=== PATIENT | female | born 1945 ===

== ENCOUNTER 2017-05-29 22:51 | Inpatient (IN) | payer MEDICARE, MEDICAID ==
[2017-05-29] MEDS ORDERED: cefTRIAXone IV 1 gm in Dextros 50 ML IV ONE (23:45)
[2017-05-29] MEDS ORDERED: Albuterol-Ipratrop 3 mg / 0.5 (3 ml) UD INH STA (23:45)
[2017-05-29 23:59] LABS: BASO % 0.5 % (0.0-2.0); EOS % 0.1 % (0.0-4.0); HEMOGLOBIN 12.4 g/dL (11.0-16.0); LYMPH # 1.5 K/uL (1.0-4.3); LYMPH % 38.6 % (20.0-40.0); MEAN CELL VOLUME 82.6 fL (81.0-99.0); MEAN CORPUSCULAR HEMOGLOBIN 27.6 pg (27.0-31.0); MEAN CORPUSCULAR HGB CONC 33.4 g/dL (33.0-37.0); MEAN PLATELET VOLUME 10.1 fL (7.2-11.7); MONO # 0.4 K/uL (0.0-0.8); MONO % 11.6 % (0.0-10.0); NEUT # 1.9 K/uL (1.8-7.0); NEUT % 49.2 % (50.0-75.0); NRBC % 0.1 % (0.0-2.0); RBC 4.49 Mil/uL (3.80-5.20); RED CELL DISTRIBUTION WIDTH 13.5 % (11.5-14.5); WHITE BLOOD COUNT 3.9 K/uL (4.8-10.8)
[2017-05-30 00:13] LABS: ALB/GLOB RATIO 1.1 (1.0-2.1); ALBUMIN 4.1 g/dL (3.5-5.0); CALCIUM 8.5 mg/dl (8.6-10.4); GFR AFRICAN-AMERICAN 59; GFR NON-AFRICAN AMERICAN 49
[2017-05-30 00:24] LABS: B-TYPE NATRIURETIC PEPTIDE 66.1 pg/mL (0-900)
[2017-05-30 00:29] LABS: ALT/SGPT 39 U/L (9-52); AST/SGOT 55 U/L (14-36); BLOOD UREA NITROGEN 20 mg/dL (7-17)
[2017-05-30] MEDS ORDERED: Albuterol-Ipratrop 3 mg / 0.5 (3 ml) UD ONE (00:40)
--- NOTE | 2017-05-30 00:40 | C.PDOC ---
History Of Present Illness <Silver Castillo - Last Filed: 05/30/17 00:54> <Meño Fernández - Last Filed: 05/30/17 01:21> 72 years old female presents to ED with complaints of fever, diarrhea, cough with yellow scant sputum for the last 3 days. Patient states she has taken zpack , Tylenol, and cough syrups with no relief. Patient is unable to follow up with PMD Dr. Fletcher because he is on vacation. Patient completed regiment of azithromycin 500mg daily for 3 days; last dose was yesterday. (Meño Fernández) <Silver Castillo - Last Filed: 05/30/17 00:54> History Per: Patient History/Exam Limitations: no limitations Onset/Duration Of Symptoms: Days (3) Current Symptoms Are (Timing): Still Present Severity: Moderate Pain Scale Rating Of: 4 Recent travel outside of the [place]: No <Meño Fernández - Last Filed: 05/30/17 01:21> Time Seen by Provider: 05/29/17 23:32 Chief Complaint (Nursing): Cough, Cold, Congestion Past Medical History Reviewed: Historical Data, Nursing Documentation, Vital Signs - Medical History PMH: HTN, Hyperlipidemia, Hyperthyroidism Surgical History: Cholecystectomy Family History: States: No Known Family Hx - Social History Hx Alcohol Use: No Hx Substance Use: No - Immunization History Hx Tetanus Toxoid Vaccination: No Hx Influenza Vaccination: No Hx Pneumococcal Vaccination: No <Meño Fernández - Last Filed: 05/30/17 01:21> Vital Signs: Last Vital Signs Temp 98.7 F 05/29/17 23:06 Pulse 62 05/30/17 00:22 Resp 18 05/30/17 00:22 BP 120/63 05/30/17 00:22 Pulse Ox 95 05/30/17 00:45 Review Of Systems Constitutional: Positive for: Fever Respiratory: Positive for: Cough, Sputum (Scanty yellow) Gastrointestinal: Positive for: Diarrhea. Negative for: Nausea, Vomiting Neurological: Negative for: Weakness, Numbness Psych: Negative for: Depression, Suicidal ideation <Meño Fernández - Last Filed: 05/30/17 01:21> Physical Exam - Physical Exam Appears: Non-toxic, Other (Awake and alert ) Skin: Normal Color, Warm, Dry Head: Atraumatic, Normacephalic Eye(s): bilateral: Normal Inspection Ear(s): Bilateral: Normal Oral Mucosa: Moist Chest: Symmetrical, No Tenderness Cardiovascular: Rhythm Regular Respiratory: No Rales, Rhonchi (Scattered), No Wheezing, Other (Increased breath sounds in bilateral bases) Gastrointestinal/Abdominal: Soft, No Tenderness Neurological/Psych: Oriented x3, Normal Speech, Normal Cognition <Meño Fernández - Last Filed: 05/30/17 01:21> ED Course And Treatment - Laboratory Results Result Diagrams: 05/29/17 23:56 05/29/17 23:56 <Silver Castillo - Last Filed: 05/30/17 00:54> - Laboratory Results Result Diagrams: 05/29/17 23:56 05/29/17 23:56 O2 Sat by Pulse Oximetry: 95 (Room air) Pulse Ox Interpretation: Normal <Meño Fernández Last Filed: 05/30/17 01:21> Medical Decision Making <Silver Castillo - Filed: 05/30/17 00:54> <Meño Fernández - Last Filed: 05/30/17 01:21> Medical Decision Making: Administered Duoneb nebulizer, SOLU- Medrol, and Rocephine. Ordered EKG, blood work, CXR, Urinalysis, Flu swab and blood cultures. (Meño Fernández) Disposition Discussed With : Tino Stein Comment: accepted the pt on his service and took over the care at 12:55 AM Doctor Will See Patient In The: Hospital Counseled Patient/Family Regarding: Studies Performed, Diagnosis - Disposition Disposition Time: 00:55 - POA Present On Arrival: None <Silver Castillo Filed: 05/30/17 00:54> <Meño Fernández - Last Filed: 05/30/17 01:21> - Disposition Disposition: HOSPITALIZED Condition: FAIR - Clinical Impression Clinical Impression: Pneumonia <Silver Castillo Filed: 05/30/17 00:54> - Scribe Statement The provider has reviewed the documentation as recorded by the Scribe <Meño Fernández - Last Filed: 05/30/17 01:21> - Scribe Statement Deep Celaya All medical record entries made by the Scribe were at my direction and personally dictated by me. I have reviewed the chart and agree that the record accurately reflects my personal performance of the history, physical exam, medical decision making, and the department course for this patient. I have also personally directed, reviewed, and agree with the discharge instructions and disposition. (Meño Fernández) Decision To Admit - Pt Status Changed To: Hospital Disposition Of: Inpatient - Admit Certification Admit to Inpatient:: After my assessment, the patient will require hospitalization for at least two midnights. This is because of the severity of symptoms shown, intensity of services needed, and/or the medical risk in this patient being treated as an outpatient. - InPatient: Physician Admission Certification: I certify that this patient requires 2 or more midnights of care for the following reason:: After my assessment, the patient will require hospitalization for at least two midnights. This is because of the severity of symptoms shown, intensity of services needed, and/or the medical risk in this patient being treated as an outpatient. - . Bed Request Type: Regular Admitting Physician: Tino Stein <Silver Castillo - Last Filed: 05/30/17 00:54> <Meño Fernández - Last Filed: 05/30/17 01:21> - . Patient Diagnosis: Pneumonia
[2017-05-30] MEDS ORDERED: Azithromycin 500 MG in Sodium Chloride 0.9% 250 ML IVPB STA (01:08)
[2017-05-30 01:18] LABS: SQUAMOUS EPITHIAL < 1 /hpf (0-5); URINE BACTERIA RARE (<OCC); URINE BILIRUBIN NEGATIVE (NEGATIVE); URINE BLOOD NEGATIVE (NEGATIVE); URINE CLARITY Clear (Clear); URINE COLOR Straw (YELLOW); URINE GLUCOSE (UA) NORMAL (Normal); URINE LEUKOCYTE ESTERASE NEG Leu/uL (Negative); URINE NITRATE NEGATIVE (NEGATIVE); URINE PROTEIN NEGATIVE (NEGATIVE); URINE UROBILINOGEN NORMAL mg/dL (0.2-1.0)
--- NOTE | 2017-05-30 18:16 | RAD ---
PROCEDURE: CHEST RADIOGRAPH, 1 VIEW HISTORY: SOB COMPARISON: None available. FINDINGS: LUNGS: No evidence of significant infiltrate or consolidation in the lungs PLEURA: No pneumothorax or pleural fluid seen. CARDIOVASCULAR: Normal. OSSEOUS STRUCTURES: No significant abnormalities. VISUALIZED UPPER ABDOMEN: Normal. OTHER FINDINGS: None. IMPRESSION: Baseline portable chest x-ray. No evidence of acute pulmonary disease.
[2017-05-31] MEDS ORDERED: Azithromycin 500mg/250ML NS 500 MG/250 ML BAG IVPB SCH ×2 (01:25)
[2017-05-31] MEDS: Azithromycin 500 MG in Sodium Chloride 0.9% 250 ML IVPB SCH (01:35)
[2017-05-31] MEDS: Levothyroxine 50 MCG TAB PO SCH (05:55)
[2017-05-31] MEDS ORDERED: cefTRIAXone IV 1 gm in Dextros 50 ML IVPB SCH (10:00)
--- NOTE | 2017-05-31 16:24 | CP.PCM.HP ---
History of Present Illness - History of Present Illness History of Present Illness: CC: cough HPI: 72 female with h/o HTN hypothyroidism osteoporosis arthritis came to ED with sob , cough and fever for 5days durations. No recent travel no sick exposure. c/o abd pain and diarrhea noted loose bm, watery and frequently chills noted cough with mucos and white in color body pain and mild sore throat noted Present on Admission - Present on Admission Any Indicators Present on Admission: No History of DVT/PE: No History of Uncontrolled Diabetes: No Urinary Catheter: No Decubitus Ulcer Present: No Review of Systems - Review of Systems All systems: reviewed and no additional remarkable complaints except Review of Systems: cough body pain chest congesion diarrhea leg swelling negative no travel or sick exposure Past Patient History - Infectious Disease Hx of Infectious Diseases: None - Tetanus Immunizations Tetanus Immunization: Unknown - Past Medical History & Family History Past Medical History?: Yes Past Family History: Reviewed and not pertinent - Past Social History Smoking Status: Never Smoked - CARDIAC Hx Hypertension: Yes - PULMONARY Hx Respiratory Disorders: No - NEUROLOGICAL Hx Neurological Disorder: No - HEENT Hx HEENT Problems: No - RENAL Hx Chronic Kidney Disease: No - ENDOCRINE/METABOLIC Hx Hyperthyroidism: Yes - HEMATOLOGICAL/ONCOLOGICAL Hx Blood Disorders: No - INTEGUMENTARY Hx Dermatological Problems: No - MUSCULOSKELETAL/RHEUMATOLOGICAL Hx Musculoskeletal Disorders: Yes Hx Arthritis: Yes Hx Falls: No - GASTROINTESTINAL Hx Gastrointestinal Disorders: Yes Other/Comment: Lactose Intolerant - GENITOURINARY/GYNECOLOGICAL Hx Genitourinary Disorders: No - PSYCHIATRIC Hx Substance Use: No - SURGICAL HISTORY Hx Cholecystectomy: Yes - ANESTHESIA Hx Anesthesia: Yes Hx Anesthesia Reactions: No Hx Malignant Hyperthermia: No Has any member of the family had a problem w/ anesthesia?: No Meds Allergies/Adverse Reactions: Allergies Allergy/AdvReac Type Severity Reaction Status Date / Time No Known Allergies Allergy Verified 05/29/17 23:11 Physical Exam - Constitutional Appears: Well - Head Exam Head Exam: ATRAUMATIC Additional comments: chest good air entry wheezing noted no fever regular hs abd soft Results - Vital Signs Recent Vital Signs: Last Vital Signs Temp 98 F 05/31/17 08:00 Pulse 63 05/31/17 08:00 Resp 20 05/31/17 08:00 BP 125/80 05/31/17 08:00 Pulse Ox 98 05/31/17 08:00 - Labs Result Diagrams: 05/29/17 23:56 05/29/17 23:56 - Impressions Impression: cxr left lower lung infiltrate Assessment & Plan (1) Hypothyroid Status: Acute (2) Hypertension Status: Acute (3) Pneumonia Assessment and Plan: CAP on antibiotics will get CT chest in am Status: Acute
--- NOTE | 2017-05-31 16:39 | CP.PCM.PN ---
Subjective - Date & Time of Evaluation Date of Evaluation: 05/31/17 Time of Evaluation: 16:37 - Subjective Subjective: pt is feeling better cough noted vitals stable eating ok white mucous noted Objective - Vital Signs/Intake and Output Vital Signs (last 24 hours): Temp Pulse Resp BP Pulse Ox 97.8 F 63 20 147/81 97 05/31/17 16:00 05/31/17 16:00 05/31/17 16:00 05/31/17 16:00 05/31/17 16:00 Intake and Output: 05/31/17 05/31/17 06:59 18:59 Intake Total 580 Balance 580 - Medications Medications: Current Medications Aspirin (Ecotrin) 81 mg PO DAILY [facility] Azithromycin 500 mg/ Sodium (Chloride) 250 mls @ 167 mls/hr IVPB Q24H [facility] Last Admin: 05/31/17 01:35 Dose: 167 mls/hr Ceftriaxone Sodium 1 gm/ (Sodium Chloride) 100 mls @ 100 mls/hr IVPB DAILY [facility] Last Admin: 05/31/17 10:13 Dose: 100 mls/hr Levothyroxine Sodium (Synthroid) 50 mcg PO DAILY@0630 [facility] Last Admin: 05/31/17 05:55 Dose: 50 mcg Losartan Potassium (Cozaar) 50 mg PO DAILY [facility] Last Admin: 05/31/17 10:12 Dose: 50 mg Methylprednisolone (Solu-Medrol) 40 mg IVP Q12 [facility] Stop: 06/03/17 22:01 Pneumococcal Polyvalent Vaccine (Pneumovax 23 Vaccine) 0.5 ml IM .ONCE ONE Stop: 06/01/17 10:01 Rosuvastatin Calcium (Crestor) 5 mg PO HS [facility] Last Admin: 05/30/17 21:11 Dose: 5 mg - Labs Labs: 05/29/17 23:56 05/29/17 23:56 - Head Exam Head Exam: ATRAUMATIC - Respiratory Exam Respiratory Exam: Prolonged Expiratory Phase - GI/Abdominal Exam GI & Abdominal Exam: Normal Bowel Sounds - Rectal Exam Rectal Exam: Deferred, NORMAL INSPECTION Assessment and Plan (1) Hypothyroid Status: Acute (2) Hypertension Status: Acute (3) Pneumonia Assessment & Plan: will get ct chest add solu-medrol on antibiotic Status: Acute
--- NOTE | 2017-05-31 17:32 | CT ---
PROCEDURE: CT Chest without contrast HISTORY: pneumonia COMPARISON: None. TECHNIQUE: Contiguous axial images were obtained through the chest without intravenous contrast enhancement. Sagittal and coronal reconstructions were performed. Radiation dose (DLP): 209.79 mGy-cm. This CT exam was performed using one or more of the following dose reduction techniques: Automated exposure control, adjustment of the mA and/or kV according to patient size, and/or use of iterative reconstruction technique. FINDINGS: LUNGS: No evidence of focal infiltrate or consolidation in the lungs to suggest pneumonia. Mild bibasilar atelectasis noted. MEDIASTINUM: Unremarkable thoracic aorta. No aneurysm. Normal sized heart. Main pulmonary artery unremarkable. No vascular congestion. No lymphadenopathy. PLEURA: No pleural fluid. No pneumothorax. BONES: No fracture. No destructive lesion. UPPER ABDOMEN: Grossly unremarkable. OTHER FINDINGS: None. IMPRESSION: No evidence of pneumonia.
[2017-05-31] MEDS: MethylPREDNISolone 40 mg Vial IVP SCH (22:04)
[2017-06-01] MEDS: Azithromycin 500 MG in Sodium Chloride 0.9% 250 ML IVPB SCH (00:44)
[2017-06-01 01:24] VITALS: PULSE 60
[2017-06-01] MEDS: Levothyroxine 50 MCG TAB PO SCH (05:46)
[2017-06-01] MEDS ORDERED: Pneumococcal 23-Valent Vaccine IM ONE (10:00)
[2017-06-01] MEDS ORDERED: Enoxaparin 40 mg Syringe SC SCH (10:00)
[2017-06-01] MEDS ORDERED: Influenza Vaccine 60 mcg/0.5 mL SYR (4YR UP) IM ONE (10:00)
[2017-06-01] MEDS: MethylPREDNISolone 40 mg Vial IVP SCH (10:49)
[2017-06-01 16:46] VITALS: BP 132/77; RESP 20; TEMP 98.5; O2SAT 94
--- NOTE | 2017-06-01 16:59 | CP.PCM.PN ---
Subjective - Date & Time of Evaluation Date of Evaluation: 06/01/17 Time of Evaluation: 11:30 - Subjective Subjective: Patient seen today, states feels better , denies any sob, chest pain, fever, chills ., N/V/ c/o productive cough with white sputum a febrile o2 94-95% on room air Objective - Vital Signs/Intake and Output Vital Signs (last 24 hours): Temp Pulse Resp BP Pulse Ox 98.5 F 60 20 132/77 94 L 06/01/17 15:00 06/01/17 15:00 06/01/17 15:00 06/01/17 15:00 06/01/17 15:00 Intake and Output: 06/01/17 06/01/17 06:59 18:59 Intake Total 240 Balance 240 - Medications Medications: Current Medications Aspirin (Ecotrin) 81 mg PO DAILY [facility] Last Admin: 06/01/17 10:49 Dose: 81 mg Enoxaparin Sodium (Lovenox) 40 mg SC DAILY [facility] Last Admin: 06/01/17 10:51 Dose: 40 mg Azithromycin 500 mg/ Sodium (Chloride) 250 mls @ 167 mls/hr IVPB Q24H [facility] Last Admin: 06/01/17 00:44 Dose: 167 mls/hr Ceftriaxone Sodium 1 gm/ (Sodium Chloride) 100 mls @ 100 mls/hr IVPB DAILY [facility] Last Admin: 06/01/17 10:49 Dose: 100 mls/hr Levothyroxine Sodium (Synthroid) 50 mcg PO DAILY@0630 [facility] Last Admin: 06/01/17 05:46 Dose: 50 mcg Losartan Potassium (Cozaar) 50 mg PO DAILY [facility] Last Admin: 06/01/17 10:49 Dose: 50 mg Methylprednisolone (Solu-Medrol) 40 mg IVP Q12 [facility] Stop: 06/03/17 22:01 Last Admin: 06/01/17 10:49 Dose: 40 mg Rosuvastatin Calcium (Crestor) 5 mg PO HS [facility] Last Admin: 05/31/17 22:04 Dose: 5 mg - Labs Labs: 05/29/17 23:56 05/29/17 23:56 - Constitutional Appears: Well, No Acute Distress - Respiratory Exam Respiratory Exam: Rhonchi, NORMAL BREATHING PATTERN - Cardiovascular Exam Cardiovascular Exam: REGULAR RHYTHM, +S1, +S2 Assessment and Plan - Assessment and Plan (Free Text) Assessment: A/P 72 yr old female admitted with fever, cough blood culture- negative so far CT- CHEST-No evidence of pneumonia. D/W , stable for discharge home today and continue zithromax x 5 days and prednisone and f/u with Dr. 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
--- NOTE | 2017-06-01 18:08 | CP.PCM.DIS ---
Provider - Provider Date of Admission: 05/30/17 00:56 Attending physician: Tino Stein MD Time Spent in preparation of Discharge (in minutes): 45 Diagnosis - Discharge Diagnosis (1) Hypothyroid Status: Acute (2) Hypertension Status: Acute (3) Pneumonia Status: Acute Hospital Course - Lab Results Lab Results: Micro Results 05/29/17 23:45 Blood Blood Culture - Preliminary NO GROWTH AFTER 48 HOURS 05/29/17 00:01 Blood Blood Culture - Preliminary NO GROWTH AFTER 48 HOURS Most Recent Lab Values WBC 3.9 K/uL (4.8-10.8) L 05/29/17 23:56 RBC 4.49 Mil/uL (3.80-5.20) 05/29/17 23:56 Hgb 12.4 g/dL (11.0-16.0) 05/29/17 23:56 Hct 37.0 % (34.0-47.0) 05/29/17 23:56 MCV 82.6 fL (81.0-99.0) 05/29/17 23:56 MCH 27.6 pg (27.0-31.0) 05/29/17 23:56 MCHC 33.4 g/dL (33.0-37.0) 05/29/17 23:56 RDW 13.5 % (11.5-14.5) 05/29/17 23:56 Plt Count 150 K/uL (130-400) 05/29/17 23:56 MPV 10.1 fL (7.2-11.7) 05/29/17 23:56 Neut % (Auto) 49.2 % (50.0-75.0) L 05/29/17 23:56 Lymph % (Auto) 38.6 % (20.0-40.0) 05/29/17 23:56 [place] % (Auto) 11.6 % (0.0-10.0) H 05/29/17 23:56 Eos % (Auto) 0.1 % (0.0-4.0) 05/29/17 23:56 Baso % (Auto) 0.5 % (0.0-2.0) 05/29/17 23:56 Neut # 1.9 K/uL (1.8-7.0) 05/29/17 23:56 Lymph # 1.5 K/uL (1.0-4.3) 05/29/17 23:56 [place]uyler # 0.4 K/uL (0.0-0.8) 05/29/17 23:56 Eos # 0.0 K/uL (0.0-0.7) 05/29/17 23:56 Baso # 0.0 K/uL (0.0-0.2) 05/29/17 23:56 Sodium 130 mmol/L (132-148) L 05/29/17 23:56 Potassium 3.9 mmol/L (3.6-5.2) 05/29/17 23:56 Chloride 97 mmol/L (98-107) L 05/29/17 23:56 Carbon Dioxide 24 mmol/L (22-30) 05/29/17 23:56 Anion Gap 13 (10-20) 05/29/17 23:56 BUN 20 mg/dL (7-17) H 05/29/17 23:56 Creatinine 1.1 mg/dL (0.7-1.2) 05/29/17 23:56 Est GFR ( Amer) 59 05/29/17 23:56 Est GFR (Non-Af Amer) 49 05/29/17 23:56 Random Glucose 103 mg/dL (65-105) 05/29/17 23:56 Calcium 8.5 mg/dl (8.6-10.4) L 05/29/17 23:56 Total Bilirubin 0.7 mg/dL (0.2-1.3) 05/29/17 23:56 AST 55 U/L (14-36) H 05/29/17 23:56 ALT 39 U/L (9-52) 05/29/17 23:56 Alkaline Phosphatase 49 U/L (38-126) 05/29/17 23:56 Troponin I < 0.0120 ng/mL (0.00-0.120) 05/29/17 23:56 NT-Pro-B Natriuret Pep 66.1 pg/mL (0-900) 05/29/17 23:56 Total Protein 7.7 g/dL (6.3-8.3) 05/29/17 23:56 Albumin 4.1 g/dL (3.5-5.0) 05/29/17 23:56 Globulin 3.7 gm/dL (2.2-3.9) 05/29/17 23:56 Albumin/Globulin Ratio 1.1 (1.0-2.1) 05/29/17 23:56 Urine Color Straw (YELLOW) 05/30/17 01:12 Urine Clarity Clear (Clear) 05/30/17 01:12 Urine pH 5.0 (5.0-8.0) 05/30/17 01:12 Ur Specific [place] 1.005 (1.003-1.030) 05/30/17 01:12 Urine Protein Negative mg/dL (NEGATIVE) 05/30/17 01:12 Urine Glucose (UA) Normal mg/dL (Normal) 05/30/17 01:12 Urine Ketones Negative mg/dL (NEGATIVE) 05/30/17 01:12 Urine Blood Negative (NEGATIVE) 05/30/17 01:12 Urine Nitrate Negative (NEGATIVE) 05/30/17 01:12 Urine Bilirubin Negative (NEGATIVE) 05/30/17 01:12 Urine Urobilinogen Normal mg/dL (0.2-1.0) 05/30/17 01:12 Ur Leukocyte Esterase Neg Jimmy/uL (Negative) 05/30/17 01:12 Urine WBC (Auto) 2 /hpf (0-5) 05/30/17 01:12 Urine RBC (Auto) < 1 /hpf (0-3) 05/30/17 01:12 Ur Squamous Epith Cells < 1 /hpf (0-5) 05/30/17 01:12 Urine Bacteria Rare (<OCC) 05/30/17 01:12 Influenza Typ A,B (EIA) Negative for flu a/b (NEGATIVE) 05/30/17 00:02 - Hospital Course Hospital Course: CC: cough HPI: 72 female with h/o HTN hypothyroidism osteoporosis arthritis came to ED with sob , cough and fever for 5days durations. No recent travel no sick exposure. c/o abd pain and diarrhea noted loose bm, watery and frequently chills noted cough with mucos and white in color body pain and mild sore throat noted h/o HTN OA LBA cxr noted to have LL pneumonia started on antibiotic and nebs with solu-medrol pt is still having cough CT chest negative for pneumonia possible acute bronchitis pt is doing well will continue OP antibiotic and prednisone nebs will f/u medications reviewed will f/u Discharge Exam - Head Exam Head Exam: ATRAUMATIC Discharge Plan - Discharge Medications Prescriptions: Nebulizer Accessories [Adult Aerosol Mask] 1 each MC Q6 30 Days each Albuterol/Ipratropium [Duoneb 3 mg/0.5 mg (3 ml) UD] 6 ml INH Q6 30 Days neb Nebulizer [Lc D Nebulizer Set] 1 each MC Q6 30 Days each predniSONE [Prednisone] 20 mg PO DAILY #7 tab Azithromycin [Zithromax] 500 mg PO DAILY #5 tablet - Follow Up Plan Condition: FAIR Disposition: HOME/ ROUTINE Instructions: Prednisone (By mouth), Azithromycin (By mouth), Ipratropium/ Albuterol (By breathing), Heart Healthy Diet (DC), Pneumonia (DC) Additional Instructions: Please f/u with Dr. Stein office on Thursday continue medication as per med. Rec. Referrals: Tino Stein MD [Staff Provider] -
== END 2017-06-01 17:20 | disposition home or self-care (01) | DRG 203 ==
LOC: C.ER 22:51 → C.9E 05-30 00:56 → C.6T 05-30 00:56
PROVIDERS: ADMIT Internal Medicine; ATTEND Internal Medicine
DX: J20.9 Acute bronchitis, unspecified (principal); E03.9 Hypothyroidism, unspecified; E78.5 Hyperlipidemia, unspecified; I10 Essential (primary) hypertension; M81.0 Age-related osteoporosis without current pathological fracture; R19.7 Diarrhea, unspecified